=== PATIENT | male | born 1955 | race Caucasian/White ===

== ENCOUNTER → 2023-06-16 | Outpatient (CLI) | payer OTHER, SELFPAY ==
--- NOTE | 2023-06-16 08:19 | MRI_ITS ---
STUDY: MR PROSTATE GLAND/ PELVIS WITH T WITHOUT CONTRAST REASON FOR EXAM: Male, 67 years old. ELEVATED PSA, NEG BX TECHNIQUE: Standardized fat and water weighted pulse sequences were obtained in all 3 orthogonal planes, pre-and post contrast administration. IV 14ml clariscan was administered for the contrast portion of the examination. COMPARISON: None. FINDINGS: Prostate gland volume/size: 4.55 x 4.52 x 2.77 cm. Anterior fibromuscular stroma: Normal Peripheral zone: A 6.8 mm oval low signal intensity nodule is present at the periphery of the left peripheral zone of the prostate gland is seen on image 19/30 series 7. This nodule demonstrates restricted diffusion and associated ADC map signal but does not enhance on the postcontrast study, which is not the typical appearance of a malignant lesion. A hyperplastic or fibrotic nodule are possibilities. If PSA remains elevated this lesion can be targeted for definitive pathologic diagnosis via biopsy. The remaining aspects of the peripheral zones of the prostate gland demonstrate normal expected bright signal. Central zone: Diffusely heterogeneous with small intervening cyst most likely due to prostatic hyperplasia Transitional zone: Diffusely heterogeneous with small intervening cyst most likely due to prostatic hyperplasia Prostate capsule: Intact Seminal vesicles: Normal Pelvic sidewall lymphadenopathy: None present Bony structures: Within normal limits. No evidence of a lytic or blastic process or active marrow edema. Normal urinary bladder. Normal visualized small intestine. There are multiple colonic diverticula of the sigmoid colon consistent with chronic diverticulosis. There is no pelvic fluid. There is no pelvic mass lesion or lymphadenopathy. Normal visualized pelvic arteries. Normal osseous structures. Normal abdominal wall. MRI/Pelvis W/WO Contrast IMPRESSION: 1. A 6.8 mm oval low signal intensity nodule is present at the periphery of the left peripheral zone of the prostate gland is seen on image 19/30 series 7. This nodule demonstrates restricted diffusion and associated ADC map signal but does not enhance on the postcontrast study, which is not the typical appearance of a malignant lesion. A hyperplastic or fibrotic nodule are possibilities. If PSA remains elevated this lesion can be targeted for definitive pathologic diagnosis via biopsy. The remaining aspects of the peripheral zones of the prostate gland demonstrate normal expected bright signal. 2. Equivocal small nodule in the left peripheral zone of the prostate gland. 3. PI-RADS 3: intermediate (the presence of clinically significant cancer is equivocal) Reference information: Normal prostate tissue Benign prostatic hypertrophy cancer/tumor - low signal peripheral , transitional, and central zones malignancy appears as bright on DWI and low signal on ADC map Prostate imaging-reporting and data system (PI-RADS) PI-RADS 1: very low (clinically significant cancer is highly unlikely to be present) PI-RADS 2: low (clinically significant cancer is unlikely to be present) PI-RADS 3: intermediate (the presence of clinically significant cancer is equivocal) PI-RADS 4: high (clinically significant cancer is likely to be present) PI-RADS 5: very high (clinically significant cancer is highly likely to be present) PI-RADS X: component of exam technically inadequate or not performed Prostate malignancy distribution: Peripheral zone: 70-80% Transitional zone: 10-20% Central zone: 5% or less Electronically Signed: Hi Justin MD at 9:35 EST ,
[2023-06-16 08:43] LABS: CREATININE FINGERSTICK < 1.0 mg/dL (0.70-1.30); EGFR FINGERSTICK > 60.0000 mL/min (>60)
== END | disposition home or self-care (01) ==
LOC: MRI 07:57
DX: Z03.89 Encounter for observation for other suspected diseases and conditions ruled out (principal); R97.20 Elevated prostate specific antigen [PSA]
CPT/HCPCS: 72197; A9575